=== PATIENT | female | born 1955 | race Caucasian/White ===

== ENCOUNTER 2016-09-28 08:11 | Emergency (ER) | payer MEDICARE, OTHER ==
[~2016-09-28] VITALS: Ht 162.6 cm; Wt 72.7 kg
[~2016-09-28 08:11] MED LIST: LEVO125T71 PO; MAG355OR15 PO; SUMA100T9 PO; TRAM50TA2 PO
[2016-09-28 08:14] VITALS: Ht 162.6 cm; Wt 72.7 kg
[2016-09-28] MEDS ORDERED: ONDANSETRON (ODT) 4 MG TAB ODT STA ×2 (08:31→09:12)
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
[2016-09-28] MEDS ORDERED: HYDROCODONE/APAP (5/325) TAB PO ONE ×2 (09:00→09:30)
--- NOTE | 2016-09-28 09:26 | RADRPT ---
PROCEDURE: XR Foot. CLINICAL INDICATION: Pain, trauma TECHNIQUE: AP, lateral and oblique views of the left foot was obtained. The images were reviewed on a PACS workstation. COMPARISON: None. FINDINGS: The bones of the foot appear intact, with no evidence of fracture, dislocation, or subluxation. The joint spaces are preserved. The bone mineralization is normal. No significant soft tissue swelling is seen. RPTAT: AA IMPRESSION: Unremarkable left foot radiographs. Physician Laura Date Time Electronically viewed and signed by Physician Laura on 09/28/2016 09:25 RA/
--- NOTE | 2016-09-28 09:26 | RADRPT ---
PROCEDURE: XR Ankle. CLINICAL INDICATION: Pain, trauma TECHNIQUE: AP, oblique and lateral views of the left ankle were performed. COMPARISON: None. FINDINGS: There is normal mineralization and alignment. No acute fracture or osseous lesion is identified. The joints are normal. The soft tissues are unremarkable. RPTAT: AA IMPRESSION: Unremarkable left ankle. Physician Laura Date Time Electronically viewed and signed by Theron Oneil Physician on 09/28/2016 09:25 RA/
[2016-09-28] MEDS ORDERED: NAPR-260 PO (09:39)
[2016-09-28] MEDS ORDERED: HYDR-906 PO (09:39)
[2016-09-28 09:54] VITALS: BP 174/92; PULSE 66; RESP 18; TEMP 98.2
== END 2016-09-28 09:55 | disposition home or self-care (01) ==
LOC: FTE 08:11
DX: S90.32XA Contusion of left foot, initial encounter (principal); S93.402A Sprain of unspecified ligament of left ankle, initial encounter; E03.9 Hypothyroidism, unspecified; V17.4XXA Pedal cycle driver injured in collision with fixed or stationary object in traffic accident, initial encounter
CPT/HCPCS: 73610